=== PATIENT | female | born 1990 | race Native Hawaiian/Other Pacific Islander ===

== ENCOUNTER 2017-10-08 13:17 | Emergency (ER) | payer OTHER ==
[~2017-10-08] VITALS: Ht 160 cm; Wt 71.7 kg
[2017-10-08 13:33] VITALS: BP 110/54; TEMP 98.6
== END 2017-10-08 14:44 | disposition home or self-care (01) ==
LOC: ED 13:17
DX: O26.851 Spotting complicating pregnancy, first trimester (principal)
CPT/HCPCS: 36415; 84702; 84703; 99284

== ENCOUNTER 2018-01-09 06:11 | Emergency (ER) | payer OTHER ==
[~2018-01-09] VITALS: Ht 160 cm; Wt 71.7 kg
[2018-01-09 06:34] VITALS: TEMP 98.7
[2018-01-09 07:30] LABS: PLATELET COUNT 201 K/uL (152-353)
[2018-01-09 07:43] LABS: POTASSIUM 3.8 mmol/L (3.6-5.2)
[2018-01-09 10:45] VITALS: BP 137/81
== END 2018-01-09 11:05 | disposition home or self-care (01) ==
LOC: ED 06:11
PROVIDERS: Internal Medicine
DX: N83.291 Other ovarian cyst, right side (principal)
CPT/HCPCS: 36415; 80053; 81000; 81025; 85027; 96374; 99284; J1885; Q9963

== ENCOUNTER 2019-02-22 10:54 | Outpatient (CLI) | payer OTHER ==
[2019-02-22 11:56] LABS: PLATELET COUNT 229 K/uL (152-353)
[2019-02-22 12:13] LABS: POTASSIUM 3.8 mmol/L (3.6-5.2)
== END 2019-02-22 23:30 | disposition home or self-care (01) ==
LOC: LABW 10:54
PROVIDERS: Nurse Practitioner Family
DX: R10.11 Right upper quadrant pain (principal)
CPT/HCPCS: 36415; 80053; 82150; 83690; 85027; 86677

== ENCOUNTER 2021-08-12 19:15 | Emergency (ER) | payer OTHER ==
[~2021-08-12] VITALS: Ht 160 cm; Wt 79.4 kg
[2021-08-12 20:10] LABS: PLATELET COUNT 231 K/uL (152-353)
[2021-08-12 20:23] LABS: POTASSIUM 3.7 mmol/L (3.6-5.2)
[2021-08-12] MEDS ORDERED: KETO10TA34 PO (21:08)
[2021-08-12] MEDS ORDERED: ONDA4TAB3 PO (21:08)
[2021-08-12 21:10] VITALS: BP 122/69; TEMP 97.8
== END 2021-08-12 21:20 | disposition home or self-care (01) ==
LOC: ED 19:15
PROVIDERS: Hospitalist
DX: R10.84 Generalized abdominal pain (principal)
CPT/HCPCS: 36415; 80053; 81000; 81025; 83690; 85027; 96360; 96374; 96375; 99284; J1170; J1885; J2405; Q9963

== ENCOUNTER 2021-11-05 18:49 | Emergency (ER) | payer OTHER ==
[~2021-11-05] VITALS: Ht 160 cm; Wt 74.4 kg
[~2021-11-05 18:49] MED LIST: KETO10TA34 PO; ONDA4TAB3 PO
[2021-11-05 19:00] VITALS: TEMP 98.9
[2021-11-05 19:15] LABS: PLATELET COUNT 222 K/uL (152-353)
[2021-11-05 19:25] LABS: POTASSIUM 3.7 mmol/L (3.6-5.2); SODIUM 137 mmol/L (136-145)
[2021-11-05] MEDS ORDERED: CIPR500T PO (20:41)
[2021-11-05] MEDS ORDERED: MELOXICAM7.5 MG PO (20:41)
[2021-11-05 21:30] VITALS: BP 100/75
== END 2021-11-05 21:30 | disposition home or self-care (01) ==
LOC: ED 18:49
PROVIDERS: Emergency Medicine
DX: M94.0 Chondrocostal junction syndrome [Tietze] (principal); N39.0 Urinary tract infection, site not specified
CPT/HCPCS: 80048; 81002; 81015; 81025; 84484; 85027; 85379; 87088; 93005; 96365; 96375; 99284; J0696; J1885

== ENCOUNTER 2022-04-13 18:55 | Emergency (ER) | payer OTHER ==
[~2022-04-13] VITALS: Ht 160 cm; Wt 72.6 kg
[~2022-04-13 18:55] MED LIST changes: +CIPR500T PO; +MELOXICAM7.5 MG PO
[2022-04-13 19:16] VITALS: TEMP 98.7
[2022-04-13 19:46] LABS: PLATELET COUNT 249 K/uL (152-353)
[2022-04-13 19:54] LABS: POTASSIUM 4.4 mmol/L (3.6-5.2)
[2022-04-13 23:00] VITALS: BP 101/49
== END 2022-04-13 22:25 | disposition home or self-care (01) ==
LOC: ED 18:55
PROVIDERS: Emergency Medicine
DX: K52.89 Other specified noninfective gastroenteritis and colitis (principal)
CPT/HCPCS: 36415; 80053; 81000; 85027; 96360; 96365; 96375; 99283; 99284; J1885; J2270; J2405; J3490; Q9963

== ENCOUNTER 2022-08-07 18:49 | Emergency (ER) | payer OTHER ==
[~2022-08-07] VITALS: Ht 160 cm; Wt 74.8 kg
[2022-08-07 18:55] VITALS: TEMP 98.9
[2022-08-07 20:25] VITALS: BP 130/76
== END 2022-08-07 20:25 | disposition home or self-care (01) ==
LOC: ED 18:49
PROC: 3E0T3BZ Introduction of Anesthetic Agent into Peripheral Nerves and Plexi, Percutaneous Approach (ICD-10-PCS; principal; 2022-08-07)
DX: R51.9 Headache, unspecified (principal); M54.81 Occipital neuralgia; Z98.890 Other specified postprocedural states
CPT/HCPCS: 96372; 99283; J2360

== ENCOUNTER 2022-08-09 13:40 | Outpatient (CLI) | payer OTHER | END 2022-08-09 19:04 | disposition home or self-care (01) | LOC: RAD 13:40 | PROVIDERS: ATTEND Nurse Practitioner | DX: M54.2 Cervicalgia (principal) ==

== ENCOUNTER 2022-09-15 13:42 | Outpatient (CLI) | payer OTHER ==
[2022-09-15 14:44] LABS: PLATELET COUNT 231 K/uL (152-353)
[2022-09-15 14:56] LABS: POTASSIUM 3.2 mmol/L (3.6-5.2)
== END 2022-09-15 20:41 | disposition home or self-care (01) ==
LOC: US 13:42
PROVIDERS: ATTEND Nurse Practitioner
DX: R10.11 Right upper quadrant pain (principal)
CPT/HCPCS: 36415; 80053; 82150; 83690; 85027; 85652; 86140